=== PATIENT | male | born 1960 | race Caucasian/White ===

== ENCOUNTER 2018-06-24 10:26 | Emergency (ER) | payer OTHER ==
--- NOTE | 2018-06-24 10:26 | NUR ---
1024 CPR STOPPED PULSE CHECK MONITOR SHOWNS PEA NO PULSE EPI GIVEN CPR STARTED. 1026 CPR STOPPED PULSE CHECK NO PULSE MONITOR PEA CPR RESUMED. EPI GIVEN. 1028 DR GOMEZ HERE CPR CON'T 1029 EPI GIVEN CPR CON'T 1031 PULSE CHECK PEA PUPLIS NON REACTIVE 1032 CODE CALLED.
--- NOTE | 2018-06-24 10:26 | NUR ---
1026 EMS ARRIVAL CPR IN PROGRESS WAS AT [employer] DOING WORK WHEN HE STARTED C/O CHEST PAIN AND SOA THAN COLLASPED. X4 EPI GIVEN BY EMS X1 300MG OF AMIDRAONE. X2 SHOCKS. ET TUBE IN PLACE BY EMS 8.[address] R LEG. Addendum: 06/24/18 at 1156 by PMCCLURE EMS REPORT BS WAS 79
[2018-06-24] MEDS ORDERED: EPINEPHrine 0.1 MG/ML 10 ML (HOSPIRA) SYR IJ ONE (10:29)
--- NOTE | 2018-06-24 10:38 | NUR ---
[facility] notified of patient . Ref #[id number] [facility] requested updates: when family is notified, home determined, or autopsy planned (location of body).
--- NOTE | 2018-06-24 10:43 | NUR ---
UNKNOWN PMH NO FAMILY HERE
--- NOTE | 2018-06-24 10:46 | NUR ---
COOKIE OFFICE CALLED TO CONTACT CLEARING HOUSE CLERK.
--- NOTE | 2018-06-24 10:50 | NUR ---
SALINE PLACED IN EYES BED AT 30 DEGREE
--- NOTE | 2018-06-24 11:21 | NUR ---
WAITING FOR FAMILY TO BE NOTIFIED.
--- NOTE | 2018-06-24 11:28 | NUR ---
SISTER CALLED TO TALK WITH DR. INGRAM Addendum: 06/24/18 at 1151 by PMCCLURE SISTER HAS NOT TALKED TO HER BROTHER IN OVER A YEAR. Addendum: 06/24/18 at 1205 by PMCCLURE CONTACT INFO FOR SISTER [phone]
--- NOTE | 2018-06-24 11:38 | NUR ---
SISTER NOTIFIED BY PHONE BY DR ARENAS
--- NOTE | 2018-06-24 11:39 | NUR ---
EMPLOYER CALLED NOTIFIED.
--- NOTE | 2018-06-24 11:46 | NUR ---
CALLED [facility] AND GAVE NAME OF SISTER. Addendum: 06/24/18 at 1149 by PMCCLURE ASK NOT TO RELEASE BODY TILL WE FIND OUT IF IT IS A LIVE IN CAREGIVER CASE .
--- NOTE | 2018-06-24 11:55 | ED CPR ---
HPI-CPR General Chief Complaint: Code Blue Stated Complaint: CODE Nursing Triage Note: SEE NOTES Sepsis Screen: No Definite Risk Source of Information: EMS, Other (PCP office) Exam Limitations: Physical Impairments History of Present Illness Date Seen by Provider: June 24, 2018 Time Seen by Provider: 10:22 Initial Comments This 58-year-old gentleman presents via EMS with CODE BLUE in progress. 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 He then became unresponsive. Bystanders found no pulse and started CPR. EMS continued CPR in route. Patient was cyanotic and unresponsive for EMS as well. Fingerstick blood sugar was 79. There is no known health history. EMS started an IO in the right mg and intubated the patient in the field. He received 4 rounds of epinephrine and 300 mg of amiodarone. EMS interpreted the initial monitor reading as ventricular fibrillation. Numerous defibrillations were administered. EMS reports 2 brief episodes of ROSC with a bradycardic pulse. The last rhythm noted by EMS was PEA. Allergies and Home Medications Allergies Uncoded Allergies: UNKNOWN CODE BLUE (Allergy, Unknown, 06/24/18) Patient Home Medication List Home Medication List Reviewed: Yes Review of Systems Review of Systems Constitutional: see HPI EENTM: No Symptoms Reported Respiratory: See HPI Cardiovascular: See HPI Gastrointestinal: No Symptoms Reported Genitourinary: No Symptoms Reported Musculoskeletal: no symptoms reported Skin: no symptoms reported Psychiatric/Neurological: See HPI Endocrine: No Symptoms Reported Hematologic/Lymphatic: No Symptoms Reported Past Jpyrook-Egfonv-Vwxlqp Hx Past Med/Social Hx: Reviewed and Corrections made Patient Social History Alcohol Use: Regular Use Recreational Drug Use: No (UNKNOWN) Smoking Status: Unknown if Ever Smoked (patient had nicotine gum in his pocket) Recent Foreign Travel: No Contact w/Someone Who Travel: No (UNKNOWN) Recent Infectious Disease Expo: No Past Medical History Surgeries: No Respiratory: No Cardiac: Yes High Cholesterol Neurological: No Gastrointestinal: Yes Gastroesophageal Reflux Musculoskeletal: No Endocrine: No HEENT: No Cancer: No Psychosocial: Yes (alcoholism) Integumentary: No Physical Exam Vital Signs Vital Signs - First Documented 06/24/18 10:26 Pulse 0 Resp 0 B/P (MAP) 0/0 (0) Pulse Ox 0 Capillary Refill : Greater Than 3 Seconds Height, Weight, BMI Height: 0'" Weight: 0lbs. oz. 0.455851po; BMI Method:Unable to Obtain General Appearance: Other (unresponsive, cyanotic) HEENT: Other (pupils fixed and dilated, ET tube in place) Neck: Other (cyanotic, no venous distention) Respiratory: Lungs Clear, Other (lungs clear bilaterally with equal chest rise during BVM ventilation) Cardiovascular: Other (pulseless with PEA on monitor) Gastrointestinal: Soft; No Distended Extremity: No Pedal Edema, Other (cool, pale) Neurologic/Psychiatric: Other (unresponsive, pupils fixed and dilated, spontaneous respirations did occur during pulse checks) Skin: Cool, Cyanosis Procedures/Interventions Tube Size: 8.00 Progress/Results/Core Measures Results/Orders Vital Signs/I&O 06/24/18 10:26 Pulse 0 Resp 0 B/P (MAP) 0/0 (0) Pulse Ox 0 Blood Pressure Mean: 0 Critical Care Note Critical Care Start Time: 10:22 Stop Time: 10:32 Total Time (minutes) 10 Date of : June 24, 2018 Time of : 10:32 Progress Patient arrived to the emergency room at 10:22 via EMS with CPR in progress. Patient had been intubated in the field. 4 doses of epinephrine had been administered along with 300 mg of amiodarone in the field. Fingerstick blood sugar was reported as 79. Patient had been defibrillated numerous times. EMS reports 2 brief episodes of ROSC with a bradycardic pulse. Each episode was quickly lost to either PEA or a fine V. fib. Patient appeared to be in PEA on arrival. Epinephrine was administered at 10:24. Pulse check was performed also at 10:24. No pulse was palpable and patient appeared to be in PEA on the monitor. An additional pulse check was performed at 10:26. Again there was no pulse and patient appeared in PEA. An additional dose of epinephrine [address] Mcmillan arrived to the emergency room at 10:28. A pulse check again revealed no pulse and PEA on the monitor. Epinephrine 1 mg IV was administered at 10:29. CPR was continued after each pulse check. The final pulse check was at 10:31. Patient was still in PEA. Pupils were fixed and dilated without response to light. All parties involved including nursing staff , Dr. Mcmillan, and myself determine further efforts were futile at this point. Patient was down and unresponsive at approximately 9:57. Resuscitation efforts started by bystanders had been ongoing continuously for about 35 minutes. Patient was declared at 10:32. 11:52. I have discussed the course of care and pronouncement of with patient's sister, Gabi Auguste. She is located in [place] and states she is next of kin. Patient has 2 siblings including Gabi and an older brother. She reports no known health problems. She reports he has no or children. I also contacted the office of Dr. Carroll. They confirm he had been seen at the clinic but they have little health history on Mr. Auguste. Diagnoses noted were GERD and hyperlipidemia. 12:12. I've discussed the situation with Dr. Carroll. He states patient had risk factors including alcoholism, tobaccoism, and hyperlipidemia. He is willing to sign the certificate. I discussed the case with Dr. SIMONS, Technical Training Coordinator. He advocated before releasing the body to home. A toilet products molder's investigation is not required at this time. Support Services Coordinator services will be contacting the patient's sister. Departure Impression Primary Impression: Cardiopulmonary arrest Additional Impressions: Ventricular fibrillation PEA (Pulseless electrical activity) Disposition: 20 Condition: Departure-Patient Inst. Referrals: NO,LOCAL PHYSICIAN (PCP) Primary Care Physician JEREMY ROMAN MD June 24, 2018 11:55
--- NOTE | 2018-06-24 12:10 | NUR ---
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 INSTRUCTIONS GIVEN ON HOW TO PLACE ICE PACKS
--- NOTE | 2018-06-24 12:15 | NUR ---
SISTER CHELY LABOY WANTED TO KNOW IF ANY CONTACT INFORMATION IN HIS WALLET NONE FOUND.
--- NOTE | 2018-06-24 12:21 | NUR ---
617.00 DOLLARS IN WALLET COUNTED BY THIS NURSE AND Shiatl AVILES RN. Addendum: 06/24/18 at 1249 by PMCCLURE BELT,TAPE MEASURE,PLIERS,KEYS,KNIFE, WATCH WITH BLACK BAND, GIFT CARDS AM EXPRESS,MASTER CARD GIFT CARD,TARGET RED CARD, [place] HOUSE GIFT CARD. AUTO ZONE CARD. NO CELL PHONE FOUND.
--- NOTE | 2018-06-24 12:45 | Consultation-Cardiology ---
HPI-Cardiology Cardiology Consultation: Date of Consultation 06/24/18 Date of Admission Attending Physician Admitting Physician Marianne,Local Physician Consulting Physician Anthony MCMILLAN MD HPI: Time Seen by a Provider: 10:28 Chief Complaint: Post cardiac arrest This is a 58-year-old gentleman who was brought by the EMS in a cardiac arrest situation with ongoing CPR. I was called emergently by the ER to assist with ongoing efforts. Not much history was available. Cardiac arrest probably around 957 a.m. The patient complained of shortness of breath and chest pain as mentioned by his coworkers. He then passed out. Immediately at CPR was started by coworkers and EMS services were called. EMS services reached a few minutes later. According to the EMS initial rhythm was ventricular fibrillation. The patient was shocked twice with brief return to spontaneous circulation and then return to ventricular fibrillation. Review of Systems-Cardiology Review of Systems Constitutional: As described under HPI; No As described under HPI, No no symptoms reported, No chills, No fever, No lightheadedness Eyes: No no symptoms reported, No blindness, No blurred vision, No contact lenses, No drainage, No decreased acuity, No foreign body sensation, No pain, No vision change Ears/Nose/Throat: No As described under HPI, No no symptoms reported, No chronic hearing loss, No ear discharge, No ear pain, No nasal drainage, No ulcerations Respiratory: No no symptoms reported; As described under HPI; No As described under HPI, No cough, No orthopnea; shortness of breath; No SOB with excertion Cardiovascular: No no symptoms reported; As described under HPI; No As described under HPI; chest pain; No edema, No irregular heart rate, No lightheadedness, No palpitations Gastrointestinal: No no symptoms reported, No As described under HPI, No abdomen distended, No abdominal pain, No blood streaked bowels, No constipation , No diarrhea, No nausea, No vomiting, No stool coloration changes Genitourinary: No As described under HPI, No burning, No dysuria, No discharge , No frequency, No flank pain, No hematuria, No urgency Skin: No rash, No skin related problems, No ulcerations Psychiatric/Neurological: As described under HPI; No anxiety, No depression, No seizure, No focal weakness, No syncope Hematologic: No bleeding abnormalities AWO-Npfrce-Rcpqks Hx Patient Social History Alcohol Use: Regular Use Recreational Drug Use: No (UNKNOWN) Smoking Status: Unknown if Ever Smoked (patient had nicotine gum in his pocket) Recent Foreign Travel: No Recent Infectious Disease Expo: No Hospitalization with Isolation: Unknown Past Medical History PMH As described under Assessment. Allergies and Home Medications Allergies Uncoded Allergies: UNKNOWN CODE BLUE (Allergy, Unknown, 06/24/18) Patient Home Medication List Home Medication List Reviewed: Yes Physical Exam-Cardiology Physical Exam Vital Signs/I&O 06/24/18 06/24/18 10:26 15:10 Pulse 0 0 Resp 0 0 B/P (MAP) 0/0 (0) 0/0 (0) Pulse Ox 0 0 Capillary Refill : Greater Than 3 Seconds Constitutional: other (Examination done in a CODE BLUE status) Respiratory: other (Some air movement in the lungs with CPR.) Cardiovascular: other (Reasonable pulse with CPR, no pulse without CPR.) A/P-Cardiology Assessment/Admission Diagnosis Post cardiac arrest Plan This patient was seen while active CPR and ACLS protocol was being done. No history was available to us. However coworkers mentioned that the patient complained of shortness of breath and chest pain before collapsing. A cardiac or pulmonary etiology cannot be ruled out. According to EMS initial rhythm was V. fib which did not respond significantly to defibrillation. Rhythm in the ER was PEA. Amiodarone 300 mg was given. Epinephrine IV was also given. CPR for over 30 minutes with no return of spontaneous circulation. I discussed with Dr. Coombs and the staff and agreed that further resuscitation efforts are futile. Thank you for your consultation. Please call me if you have any questions. Freedom Mcmillan MD, FACP, FACC, FSCAI, FHRS, CCDS Interventional Cardiology Cardiac Electrophysiology Vascular Medicine and Endovascular Interventions Anthony MCMILLAN MD June 24, 2018 12:45
--- NOTE | 2018-06-24 12:55 | NUR ---
GIFT CARDS FOUND IN HARD PURPLE WALLET
--- NOTE | 2018-06-24 13:21 | NUR ---
CON'T TO WAIT FOR BRIDGER TO CALL BACK WITH
--- NOTE | 2018-06-24 13:25 | NUR ---
TALKED WITH [facility] SINCE THEY HAVE NO ONE THAT CAN ANSWER ABOUT HIS PMH QUESTIONS ARE GOING TO CLOSE EYE BANK WILL ALSO CLOSE CASE.
--- NOTE | 2018-06-24 13:37 | NUR ---
BROTHER ALONSO [phone] REQUEST HE GO TO [facility]. SISTER KARTHIK [phone]
--- NOTE | 2018-06-24 13:44 | NUR ---
[facility] CALLED TO PICK BODY UP
[2018-06-24 15:10] VITALS: BP 0/0
== END 2018-06-24 15:10 | disposition expired ==
LOC: ER 10:28
DX: I46.9 Cardiac arrest, cause unspecified (principal); I49.01 Ventricular fibrillation; E78.00 Pure hypercholesterolemia, unspecified; K21.9 Gastro-esophageal reflux disease without esophagitis; F10.20 Alcohol dependence, uncomplicated
CPT/HCPCS: 36680